=== PATIENT | female | born 1970 | race American Indian/Alaskan Native ===

== ENCOUNTER 2017-01-16 13:15 | Emergency (ER) | payer OTHER ==
[2017-01-16 13:50] VITALS: BP 152/84
--- NOTE | 2017-01-16 15:05 | XRay Report ---
Left forearm, left wrist: There is generalized swelling of the forearm and specifically over the dorsum of the wrist and hand. There is a comminuted fracture of the distal radius extending into the articular surface. Mild separation of the bony fragments with mild anterior displacement of the main fragment. There is an incompletely fracture of the ulnar styloid. The carpal bones appear intact. The proximal radius and ulnar appear normal. Impressions: Radius and ulnar fractures.
[2017-01-16] MEDS ORDERED: NORCO 5/325 PO ONE (17:23)
[2017-01-16] MEDS ORDERED: BOOSTRIX IM ONE (17:40)
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
== END 2017-01-16 18:36 | disposition home or self-care (01) ==
LOC: ED 13:15
DX: S52.502A Unspecified fracture of the lower end of left radius, initial encounter for closed fracture (principal); S52.602A Unspecified fracture of lower end of left ulna, initial encounter for closed fracture; S62.102A Fracture of unspecified carpal bone, left wrist, initial encounter for closed fracture; V43.52XA Car driver injured in collision with other type car in traffic accident, initial encounter; Y92.488 Other paved roadways as the place of occurrence of the external cause; Y93.89 Activity, other specified; Y99.9 Unspecified external cause status
CPT/HCPCS: 90471; 90715